=== PATIENT | female | born 1980 | race Caucasian/White ===

== ENCOUNTER → 2016-05-07 | Outpatient (CLI) | payer OTHER ==
[~2016-05-07] MED LIST: ACET-1256 PO; OXYC-57 PO
== END | disposition home or self-care (01) ==
LOC: C.PAPS 16:27
PROVIDERS: ATTEND Obstetrics & Gynecology
DX: Z12.4 Encounter for screening for malignant neoplasm of cervix (principal)

== ENCOUNTER → 2016-05-11 | Outpatient (CLI) | payer OTHER | END | disposition home or self-care (01) | LOC: C.LAB 12:38 | PROVIDERS: ATTEND Obstetrics & Gynecology | DX: Z83.2 Family history of diseases of the blood and blood-forming organs and certain disorders involving the immune mechanism (principal) ==

== ENCOUNTER → 2017-03-14 | Outpatient (CLI) | payer OTHER ==
[~2017-03-14] MED LIST changes: -OXYC-57 PO
--- NOTE | 2017-03-17 07:59 | MAMMOGRAPHY REPORT ---
BILATERAL DIGITAL SCREENING MAMMOGRAM TOMOSYNTHESIS WITH CAD: 03/14/2017 CLINICAL HISTORY: Routine screening. Patient has no complaints. TECHNIQUE: Breast tomosynthesis in addition to standard 2D mammography was performed. Current study was also evaluated with a Computer Aided Detection (CAD) system. COMPARISON: Comparison is made to exams dated: 02/26/2016 mammogram, 02/03/2014 mammogram, 05/27/2011 mammogram, and 05/21/2011 mammogram - [facility]. BREAST COMPOSITION: There are scattered areas of fibroglandular density in both breasts. FINDINGS: No suspicious masses, calcifications, or areas of architectural distortion are noted in ei ther breast. There has been no significant interval change compared to prior exams. Asymmetries in t he left superior breast on the MLO view are stable compared to prior exams. Scattered bilateral taylor gn appearing calcifications are not significantly changed. IMPRESSION: ACR BI-RADS CATEGORY 2: BENIGN There is no mammographic evidence of malignancy. A 1 year screening mammogram is recommended. The pa tient will receive written notification of the results. Approximately 10% of breast cancers are not detected with mammography. A negative mammographic report should not delay biopsy if a clinically suggestive mass is present. Dorie Bee M.D. /:03/14/2017 17:29:51 I O Psychologist: Peyton ROSARIO)(Jean Claude)(BD), [facility] letter sent: Normal 1/2 BI-RADS Code: ACR BI-RADS Category 2: Benign
== END | disposition home or self-care (01) ==
LOC: C.MAMM 09:45
PROVIDERS: ATTEND Obstetrics & Gynecology
DX: Z12.31 Encounter for screening mammogram for malignant neoplasm of breast (principal)

== ENCOUNTER 2021-01-14 02:00 | Observation (INO) ==
[2021-01-14] MEDS ORDERED: ACETAMINOPHEN 500 MG TAB PO STA (02:34)
[2021-01-14] MEDS ORDERED: ONDANSETRON INJ 2 MG/ML 2 ML VIAL IV STA (02:47)
[2021-01-14 02:54] LABS: Appearance Urine Cloudy (Clear); Bacteria Urine Automated 1+ (Negative); Blood Urine 2+ (Negative); Color Urine Dark Yellow; Epithelial Cell Urine Auto >30 /lpf (0-5); Glucose Urine UA Negative (Negative); Ketones Urine Trace (Negative); Leukocyte Esterase Urine Negative (Negative); Nitrite Urine Negative (Negative); Protein Urine Trace (Negative); Specific Gravity Urine 1.042 (1.000-1.030); Urobilinogen Urine Negative (Negative)
[2021-01-14 02:59] LABS: Bilirubin Urine 1+ (Negative); Pregnancy Test, Urine Negative (Negative)
[2021-01-14] MEDS ORDERED: SODIUM CHLORIDE 0.9% 1000ML 1,000 ML IV SCH (03:00)
[2021-01-14 03:28] LABS: Basophils # (auto) 0.01 K/uL (0-0.2); Basophils % (auto) 0.1 %; Eosinophils # (auto) 0.45 K/uL (0-0.5); Eosinophils % (auto) 3.5 %; Hematocrit (blood only) 43.7 % (37-47); Immature Granulocytes # (auto) 0.04 K/uL (0.00-0.02); Immature Granulocytes % (auto) 0.3 %; Lymphocytes # (auto) 0.49 K/uL (1.2-3.4); Lymphocytes % (auto) 3.8 %; Mean Corpuscular Hemoglobin 32.6 pg (25-34); Mean Corpuscular Hgb Conc 34.3 g/dL (32-36); Mean Platelet Volume 11.8 fL (7.4-10.4); Monocytes # (auto) 0.56 K/uL (0.11-0.59); Monocytes % (auto) 4.3 %; Platelet Count 167 K/uL (130-400); RDW Coefficient of Variation 12.9 % (11.5-14.5); RDW Standard Deviation 44.8 fL (36.4-46.3); White Blood Count 12.95 K/uL (4.8-10.8)
--- NOTE | 2021-01-14 03:35 | Emergency Department Note ---
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 Patient denies chest pain, dyspnea, vomiting, diarrhea. She is vaccinated for COVID-19. No known sick contacts. Home Medications Medication Instructions Recorded Confirmed Type sulfamethoxazole 800 1 tab PO BID 01/14/21 01/14/21 History mg-trimethoprim 160 mg tablet Allergies Allergy/AdvReac Type Severity Reaction Status Date / Time No Known Allergies Allergy Verified 01/14/21 02:57 Past Med/Surg History Medical History No significant medical problems Surgical History History of abdominoplasty History of History of cholecystectomy Tubal ligation status Social History Smoking Status: Current every day smoker Tobacco Type: Cigarettes marital status: Current Living Situation: Family current occupational status: employed 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 Feels Safe at Home: Yes Review of Systems A total of 10 systems reviewed and were otherwise negative Physical Exam Vital Signs Vital Signs - 24 hr 01/14/21 02:20 01/14/21 03:24 01/14/21 03:25 Temperature 37.7 C H Temperature Source Temporal Artery Scan Pulse Rate 122 H Pulse Rate [Finger] Respiratory Rate 18 Respiratory Effort / Characteristics Non-Labored Spontaneous Non-Labored Respiratory Depth Normal Blood Pressure 110/72 Blood Pressure [Right Arm] Blood Pressure Mean 84 Blood Pressure Mean [Right Arm] Pulse Oximetry 97 98 Oxygen Delivery Method Room Air Room Air Sepsis Recent Fever Within 48 Hours Yes Sepsis New/Unexplained Change in Mental Status Yes Sepsis Action Taken by Nursing No Action Required 01/14/21 04:48 Temperature 37.4 C Temperature Source Oral Pulse Rate Pulse Rate [Finger] 100 H Respiratory Rate 18 Respiratory Effort / Characteristics Non-Labored Spontaneous Respiratory Depth Normal Blood Pressure Blood Pressure [Right Arm] 107/53 L Blood Pressure Mean Blood Pressure Mean [Right Arm] 71 Pulse Oximetry 96 Oxygen Delivery Method Room Air Sepsis Recent Fever Within 48 Hours Sepsis New/Unexplained Change in Mental Status Sepsis Action Taken by Nursing VITALS: Vitals are noted on the nurse's note and reviewed by myself. Vital signs low-grade fever. GENERAL: Pleasant female mildly ill-appearing, in no acute distress, nondiaphoretic, well-developed well-nourished. SKIN: Bite to thigh with no palpable abscess. No lymphangitis. The rest of the skin was without rashes, erythema, edema, or bruising. There is no tenting of the skin. Capillary reflex less than 2 seconds. HEAD: Normocephalic atraumatic. EARS: External auditory canals clear, tympanic membranes pearly buchanan without erythema or effusion bilaterally. EYES: Pupils equal round and reactive to light and accommodation. Conjunctivae without injection, sclerae without icterus. Extraocular movements intact. NOSE: Patent, turbinates without inflammation or discharge. No sinus tenderness. MOUTH: Mucous membranes mildly dry. Pharynx without erythema or exudate. Uvula midline. Airway patent. Tongue does not deviate. NECK: Supple without nuchal rigidity. No lymphadenopathy. No thyromegaly. Cervical spine is nontender. No JVD. HEART: Regular rate and rhythm LUNGS: Clear to auscultation bilaterally without wheezes, rales or rhonchi. No retractions or accessory muscle use. ABDOMEN: Positive bowel sounds x 4. Normal tympanic percussion. Soft, n ontender, without masses or organomegaly. Gonzalez sign negative. No guarding or rebound tenderness. left CVA tenderness MUSCULOSKELETAL: No muscle atrophy, erythema, or edema noted. NEURO: Patient was alert and oriented to person place and time. Normal sensation to light and sharp touch. No focal neurological deficits. Course Administered Medications Discontinued Medications Acetaminophen (Acetaminophen 500 Mg Tab) 1,000 mg PO NOW STA Stop: 01/14/21 02:35 Last Admin: 01/14/21 03:24 Dose: 1,000 mg Documented by: [id number] Sodium Chloride (Nss 1000ml) 1,000 mls @ 999 mls/hr IV .Q1H1M MANDO Stop: 01/14/21 04:00 Last Infusion: 01/14/21 04:36 Dose: 0 mls/hr Documented by: [id number] Admin: 01/14/21 03:24 Dose: 999 mls/hr Documented by: [id number] Sodium Chloride (Nss 1000ml) 1,000 mls @ 999 mls/hr IV .Q1H1M ONE Stop: 01/14/21 05:34 Last Admin: 01/14/21 04:47 Dose: 999 mls/hr Documented by: [id number] Ceftriaxone Sodium (Rocephin) 2,000 mg in 70 mls @ 140 mls/hr IV NOW STA Stop: 01/14/21 05:03 Last Infusion: 01/14/21 05:19 Dose: 0 mls/hr Documented by: [id number] Admin: 01/14/21 04:47 Dose: 140 mls/hr Documented by: [id number] Ioversol (Optiray 320 100ml) 95 ml IV ONCE ONE Stop: 01/14/21 05:56 Last Admin: 01/14/21 05:55 Dose: 95 ml Documented by: [id number] Ketorolac Tromethamine (Ketorolac Tromethamine 15 Mg/Ml Vial) 10 mg IV NOW STA Stop: 01/14/21 04:35 Last Admin: 01/14/21 04:47 Dose: 10 mg Documented by: [id number] Ondansetron HCl (Ondansetron Inj 2 Mg/Ml 2 Ml Vial) 4 mg IV NOW STA Stop: 01/14/21 02:48 Last Admin: 01/14/21 03:24 Dose: 4 mg Documented by: [id number] Medical Decision Making Medical Records Attestation: I reviewed the patient's medical records. Home Medications Current Medication List: was personally reviewed by me Laboratory Data Attestation: I reviewed the patient's lab results. Result diagrams: 01/14/21 03:11 01/14/21 03:11 Lab Results 01/14/21 01/14/21 01/14/21 Range/Units 02:35 02:35 02:35 WBC (4.8-10.8) K/uL RBC (4.2-5.4) M/uL Hgb (12.0-16.0) g/dL Hct (37-47) % MCV (80-100) fL MCH (25-34) pg MCHC (32-36) g/dL RDW Std Deviation (36.4-46.3) fL RDW Coeff of David (11.5-14.5) % Plt Count (130-400) K/uL MPV (7.4-10.4) fL Immature Gran % (Auto) % Neut % (Auto) % Lymph % (Auto) % [place] % (Auto) % Eos % (Auto) % Baso % (Auto) % Neut # (Auto) (1.4-6.5) K/uL Lymph # (Auto) (1.2-3.4) K/uL [place] # (Auto) (0.11-0.59) K/uL Eos # (Auto) (0-0.5) K/uL Baso # (Auto) (0-0.2) K/uL Immature Gran # (Auto) (0.00-0.02) K/uL PT (9.0-12.0) Seconds INR (0.9-1.1) APTT (21.0-31.0) Seconds PTT Ratio Sodium (136-145) mmol/L Potassium (3.5-5.1) mmol/L Chloride (98-107) mmol/L Carbon Dioxide (21-32) mmol/L Anion Gap (3-11) BUN (7-18) mg/dl Creatinine (0.6-1.2) mg/dl Est Cr Clr Drug Dosing ml/min Est GFR ( Amer) ml/min Est GFR (Non-Af Amer) ml/min BUN/Creatinine Ratio (10-20) Glucose (70-99) mg/dl Lactate (0.4-2.0) mmol/L Calcium (8.5-10.1) mg/dl Magnesium (1.8-2.4) mg/dl Total Bilirubin (0.2-1) mg/dl AST (15-37) U/L ALT (12-78) U/L Alkaline Phosphatase (45-117) U/L Troponin I (0-0.045) ng/ml Total Protein (6.4-8.2) gm/dl Albumin (3.4-5.0) gm/dl Globulin (2.5-4.0) gm/dl Albumin/Globulin Ratio (0.9-2) Urine Color Dark Yellow Urine Appearance Cloudy A (Clear) Urine pH 6.0 (4.5-7.5) Ur Specific [place] 1.042 H (1.000-1.030) Urine Protein Trace H (Negative) Urine Glucose (UA) Negative (Negative) Urine Ketones Trace H (Negative) Urine Blood 2+ H (Negative) Urine Nitrite Negative (Negative) Urine Bilirubin 1+ H (Negative) Urine Urobilinogen Negative (Negative) Ur Leukocyte Esterase Negative (Negative) Urine WBC (Auto) 10-30 H (0-5) /hpf Urine RBC (Auto) 10-30 H (0-4) /hpf U Hyaline Cast (Auto) 5-10 H (0-5) /lpf U Epithel Cells (Auto) >30 H (0-5) /lpf Urine Bacteria (Auto) 1+ H (Negative) Urine Yeast Not Reportable Urine Test Negative (Negative) Lyme Disease IgG Ab (Negative) Lyme Disease IgM Ab (Negative) COVID-19 Eval Order Covid19 at [facility] SARS-CoV-2 (PCR) (Negative) 01/14/21 01/14/21 01/14/21 Range/Units 02:35 03:11 03:11 WBC 12.95 H (4.8-10.8) K/uL RBC 4.60 (4.2-5.4) M/uL Hgb 15.0 (12.0-16.0) g/dL Hct 43.7 (37-47) % MCV 95.0 (80-100) fL MCH 32.6 (25-34) pg MCHC 34.3 (32-36) g/dL RDW Std Deviation 44.8 (36.4-46.3) fL RDW Coeff of David 12.9 (11.5-14.5) % Plt Count 167 (130-400) K/uL MPV 11.8 H (7.4-10.4) fL Immature Gran % (Auto) 0.3 % Neut % (Auto) 88.0 % Lymph % (Auto) 3.8 % [place] % (Auto) 4.3 % Eos % (Auto) 3.5 % Baso % (Auto) 0.1 % Neut # (Auto) 11.40 H (1.4-6.5) K/uL Lymph # (Auto) 0.49 L (1.2-3.4) K/uL [place] # (Auto) 0.56 (0.11-0.59) K/uL Eos # (Auto) 0.45 (0-0.5) K/uL Baso # (Auto) 0.01 (0-0.2) K/uL Immature Gran # (Auto) 0.04 H (0.00-0.02) K/uL PT 10.9 (9.0-12.0) Seconds INR 1.1 (0.9-1.1) APTT 30.7 (21.0-31.0) Seconds PTT Ratio 1.2 Sodium (136-145) mmol/L Potassium (3.5-5.1) mmol/L Chloride (98-107) mmol/L Carbon Dioxide (21-32) mmol/L Anion Gap (3-11) BUN (7-18) mg/dl Creatinine (0.6-1.2) mg/dl Est Cr Clr Drug Dosing ml/min Est GFR ( Amer) ml/min Est GFR (Non-Af Amer) ml/min BUN/Creatinine Ratio (10-20) Glucose (70-99) mg/dl Lactate (0.4-2.0) mmol/L Calcium (8.5-10.1) mg/dl Magnesium (1.8-2.4) mg/dl Total Bilirubin (0.2-1) mg/dl AST (15-37) U/L ALT (12-78) U/L Alkaline Phosphatase (45-117) U/L Troponin I (0-0.045) ng/ml Total Protein (6.4-8.2) gm/dl Albumin (3.4-5.0) gm/dl Globulin (2.5-4.0) gm/dl Albumin/Globulin Ratio (0.9-2) Urine Color Urine Appearance (Clear) Urine pH (4.5-7.5) Ur Specific [place] (1.000-1.030) Urine Protein (Negative) Urine Glucose (UA) (Negative) Urine Ketones (Negative) Urine Blood (Negative) Urine Nitrite (Negative) Urine Bilirubin (Negative) Urine Urobilinogen (Negative) Ur Leukocyte Esterase (Negative) Urine WBC (Auto) (0-5) /hpf Urine RBC (Auto) (0-4) /hpf U Hyaline Cast (Auto) (0-5) /lpf U Epithel Cells (Auto) (0-5) /lpf Urine Bacteria (Auto) (Negative) Urine Yeast Urine Test (Negative) Lyme Disease IgG Ab (Negative) Lyme Disease IgM Ab (Negative) COVID-19 Eval Order SARS-CoV-2 (PCR) NEGATIVE (Negative) 01/14/21 01/14/21 01/14/21 Range/Units 03:11 03:11 03:11 WBC (4.8-10.8) K/uL RBC (4.2-5.4) M/uL Hgb (12.0-16.0) g/dL Hct (37-47) % MCV (80-100) fL MCH (25-34) pg MCHC (32-36) g/dL RDW Std Deviation (36.4-46.3) fL RDW Coeff of David (11.5-14.5) % Plt Count (130-400) K/uL MPV (7.4-10.4) fL Immature Gran % (Auto) % Neut % (Auto) % Lymph % (Auto) % [place] % (Auto) % Eos % (Auto) % Baso % (Auto) % Neut # (Auto) (1.4-6.5) K/uL Lymph # (Auto) (1.2-3.4) K/uL [place] # (Auto) (0.11-0.59) K/uL Eos # (Auto) (0-0.5) K/uL Baso # (Auto) (0-0.2) K/uL Immature Gran # (Auto) (0.00-0.02) K/uL PT (9.0-12.0) Seconds INR (0.9-1.1) APTT (21.0-31.0) Seconds PTT Ratio Sodium 135 L (136-145) mmol/L Potassium 3.8 (3.5-5.1) mmol/L Chloride 111 H (98-107) mmol/L Carbon Dioxide 20 L (21-32) mmol/L Anion Gap 4.0 (3-11) BUN 10 (7-18) mg/dl Creatinine 1.26 H (0.6-1.2) mg/dl Est Cr Clr Drug Dosing 59.8 ml/min Est GFR ( Amer) 61.3 ml/min Est GFR (Non-Af Amer) 52.9 ml/min BUN/Creatinine Ratio 7.8 L (10-20) Glucose 117 H (70-99) mg/dl Lactate 1.4 (0.4-2.0) mmol/L Calcium 8.5 (8.5-10.1) mg/dl Magnesium 2.1 (1.8-2.4) mg/dl Total Bilirubin 0.6 (0.2-1) mg/dl AST 23 (15-37) U/L ALT 32 (12-78) U/L Alkaline Phosphatase 89 (45-117) U/L Troponin I < 0.015 (0-0.045) ng/ml Total Protein 7.1 (6.4-8.2) gm/dl Albumin 3.3 L (3.4-5.0) gm/dl Globulin 3.8 (2.5-4.0) gm/dl Albumin/Globulin Ratio 0.9 (0.9-2) Urine Color Urine Appearance (Clear) Urine pH (4.5-7.5) Ur Specific [place] (1.000-1.030) Urine Protein (Negative) Urine Glucose (UA) (Negative) Urine Ketones (Negative) Urine Blood (Negative) Urine Nitrite (Negative) Urine Bilirubin (Negative) Urine Urobilinogen (Negative) Ur Leukocyte Esterase (Negative) Urine WBC (Auto) (0-5) /hpf Urine RBC (Auto) (0-4) /hpf U Hyaline Cast (Auto) (0-5) /lpf U Epithel Cells (Auto) (0-5) /lpf Urine Bacteria (Auto) (Negative) Urine Yeast Urine Test (Negative) Lyme Disease IgG Ab Negative (Negative) Lyme Disease IgM Ab Negative (Negative) COVID-19 Eval Order SARS-CoV-2 (PCR) (Negative) Imaging Data Attestation: I personally reviewed and interpreted this imaging study as follows: MDM Narrative Prior records/ancillary studies reviewed. Triage Nursing notes reviewed. Additional history obtained from nursing. The patient's history was concerning for fever. Differential diagnosis: Etiologies such as viral syndrome, otitis, pharyngitis, pneumonia, influenza, meningitis, urinary tract infection, sepsis, bacteremia, as well as others were entertained. Physical examination: As above ER treatment provided: An order was placed for continuous cardiac monitoring. The monitor shows a rate of 60-1 50 with a sinus rhythm. IV fluids, Tylenol, Rocephin, Toradol On reassessment the patient felt better. Diagnostics interpreted by me: ECG: Ordered for tachycardia EKG: Normal sinus, incomplete right bundle branch block, no acute ST-T wave changes. Impression incomplete right bundle branch block interpreted by myself I think arrhythmia is unlikely. EKG shows no interval abnormalities such as QT prolongation or WPW. There are no findings to suggest Brugada syndrome. Cardiac monitoring in the emergency department reveals no tachycardic or bradycardic dysrhythmia. Hypertrophic cardiomyopathy was considered but there are no clear historical elements pointing toward this. EKG is not suggestive. The QRS voltage is not extremely large and there are no suggestive Q waves. The labs revealed leukocytosis, urine concerning for infection sent for culture. No prior urine culture for review Negative Covid Blood cultures pending Imaging studies: Chest x-ray with no acute consolidation, pneumothorax or free air per my tribulation Preliminary Findings Only See Final Report For Complete Findings CT ABDOMEN & PELVIS With Contrast: Impression: Cholecystectomy. No urinary bladder wall thickening. No hydronephrosis or nephrolithiasis No evidence of appendicitis. Radiologist: Steven Lau MD Consultation: A consultation was placed with hospitalist. The case was discussed and diagnostics were reviewed. The patient was evaluated in the ER for further treatment. This appears to be consistent with pyelonephritis. Medicine was consulted. She will be evaluated for admission. She has CVA tenderness. Urine was concerning for infection. She had fever and a white count. By the evaluation outlined above emergent etiologies such as otitis, pharyngitis, pneumonia, meningitis, sepsis, bacteremia, as well as others were deemed relatively unlikely. The pt informed about the findings as listed above. All questions were answered and pleased with the treatment. The chart was completed utilizing [employer] Speech voice recognition software. Grammatical errors, random word insertions, pronoun errors, and incomplete sentences are an occassional consequence of this system due to software limitations, ambient noise, and hardware issues. Any formal questions or concerns about the content, text, or information contained within the body of this dictation should be directly addressed to the physician bilingual office assistant for clarification. Impression & Plan Pyelonephritis, Fever Discharge Plan Visit Data Chief Complaint: Nausea Stated Complaint: CHILLS, FEVER, NAUSEA ED Provider: Ada Parada ED Midlevel Provider: Olamide Sawyer Discharge Problem: Pyelonephritis, Fever Patient Disposition: Admitted As Inpatient Condition: Good Forms Stand Alone Forms: My [facility] [place] [employer] Prescriptions Prescriptions: No Action sulfamethoxazole-trimethoprim 800-160 mg tablet 1 tab PO BID RF: 0 Referrals Referrals: Meredith Garduno PA-C [Primary Care Provider] -
[2021-01-14 03:38] LABS: INR 1.1 (0.9-1.1); Partial Thromboplastin Ratio 1.2; Partial Thromboplastin Time 30.7 Seconds (21.0-31.0); Prothrombin Time 10.9 Seconds (9.0-12.0)
[2021-01-14 03:48] LABS: Alanine Aminotransferase 32 U/L (12-78); Albumin Level 3.3 gm/dl (3.4-5.0); Aspartate Aminotransferase 23 U/L (15-37); BUN Creatinine Ratio 7.8 (10-20); Blood Urea Nitrogen 10 mg/dl (7-18); Calcium 8.5 mg/dl (8.5-10.1); Carbon Dioxide 20 mmol/L (21-32); Chloride 111 mmol/L (98-107); Creatinine Clr Calc Pharmacy 59.8 ml/min; Est GFR (African American) 61.3 ml/min; Est GFR (Non-African American) 52.9 ml/min; Glucose 117 mg/dl (70-99); Magnesium 2.1 mg/dl (1.8-2.4); Potassium 3.8 mmol/L (3.5-5.1); Sodium 135 mmol/L (136-145)
[2021-01-14 03:53] LABS: Albumin Globulin Ratio 0.9 (0.9-2); Alkaline Phosphatase 89 U/L (45-117); Bilirubin,Total 0.6 mg/dl (0.2-1); Globulin 3.8 gm/dl (2.5-4.0); Total Protein 7.1 gm/dl (6.4-8.2); Troponin I < 0.015 ng/ml (0-0.045)
[2021-01-14 04:09] LABS: Lyme Ab IgG w/WB Rflx Negative (Negative); Lyme Ab IgM w/WB Rflx Negative (Negative)
[2021-01-14] MEDS ORDERED: cefTRIAXone SODIUM 2,000 MG/70 ML BAG IV STA (04:34)
[2021-01-14] MEDS ORDERED: KETOROLAC TROMETHAMINE 15 MG/ML VIAL IV STA (04:34)
[2021-01-14] MEDS ORDERED: SODIUM CHLORIDE 0.9% 1000ML 1,000 ML IV ONE (04:34)
[2021-01-14] MEDS ORDERED: OPTIRAY 320 100ml IV ONE (05:55)
--- NOTE | 2021-01-14 07:27 | History and Physical Report ---
DATE OF ADMISSION: 01/14/2021 CHIEF COMPLAINT: Nausea, fever. HISTORY OF PRESENT ILLNESS: This is a 40-year-old female with past medical history significant for dysfunctional uterine bleeding, obesity, presents with nausea. The patient says on , she had a bug bite on the left thigh region. She felt a stinging feeling, but she did not see the bug. Then she developed erythematous rash in that area and she was prescribed Bactrim, which was taken and since then she developed nausea, vomiting, shaking chills. That is the reason she came to the ER today and found to have UTI and possible pyelonephritis. Currently, resting comfortably, hemodynamically stable. Denies any headache, no dizziness, no blurred visions, no earache, no runny nose, no sore throat, no cough, no dysphagia, appetite is down the last couple of days. No chest pain, no shortness of breath. She has nausea and vomited a few times. No abdominal pain, no diarrhea or constipation. No blood in the urine or blood in the stools. No rash, no swelling in the legs. ALLERGIES: No known drug allergies. PAST MEDICAL HISTORY: As mentioned above. PAST SURGICAL HISTORY: Breast biopsy. MEDICATIONS: Bactrim. FAMILY HISTORY: Significant for sister has atypical hyperplasia. SOCIAL HISTORY: , smokes tobacco. Occasional alcohol, no drug use. REVIEW OF SYSTEMS: As per HPI. Rest of review of systems is negative. PHYSICAL EXAMINATION: GENERAL: The patient is of moderate build, not in acute distress. VITAL SIGNS: Temperature T-max 37.7, pulse 100, respiratory rate 18, blood pressure 107/53, oxygen 96% on room air. HEENT: Pupils equal, round and reactive to light. Oral mucosa moist. NECK: No JVD, no neck masses. CARDIOVASCULAR: S1 and S2 heard. Regular rate and rhythm. No murmur, no gallop. RESPIRATORY SYSTEM: Normal AP diameter. No accessory muscle use. No wheezing, no crackles. ABDOMEN: Soft, bowel sounds are present, nontender, no distention. CENTRAL NERVOUS SYSTEM: Cranial nerves II through XII are grossly intact, nonfocal. EXTREMITIES: Erythematous rash seen in her left thigh in the medial aspect. LABORATORY DATA: WBC 12.9, hemoglobin 15, hematocrit 43.7, platelets 167. PT 10.9, INR 1.1, APTT 13.7. Sodium 135, potassium 3.8, chloride 111, bicarbonate 20, BUN 10, creatinine 1.2, serum glucose 117. Lactate 1.4, calcium 8.5, magnesium 2.1, total bilirubin 0.6, AST 23, ALT 32, alkaline phosphatase 89. Troponin I less than 0.015. Urinalysis cloudy, +2 blood, +1 bacteria. Lyme screen negative. SARS-CoV-2 PCR negative. IMAGING DATA: Chest x-ray, no acute findings. CT abd/pelvis preliminary report unremarkable EKG: Sinus tachycardia, incomplete right bundle-branch block at a rate of 107. ASSESSMENT AND PLAN: This is a 40-year-old female who presents with bug bite and also urinary tract infection, possible pyelonephritis. 1. Urinary tract infection, possible pyelonephritis and shaking chills, temperature spike and leukocytosis. We will place her on IV Rocephin. Follow the cultures. Gentle fluids. 2. Acute kidney injury . Presented with creatinine 1.25. Avoid nephrotoxic agents. Repeat labs. 3. Bug bite and cellulitis of the left thigh region in the medial aspect. Lyme screen is negative. The patient felt a stinging bug bite, but could not see the bug. We will also add doxycycline along with Rocephin and follow the response. 4. Deep venous thrombosis prophylaxis: Lovenox. DISPOSITION: Closely monitor in the medical floor. PT, OT prior to discharge. Social service to help with discharge planning. Job ID: [id number] MTDD
--- NOTE | 2021-01-14 08:01 | CT Scan Report ---
ABDOMEN AND PELVIS CT WITH IV CONTRAST CT DOSE: 430.46 mGy.cm HISTORY: Right flank pain, uti TECHNIQUE: Multiaxial CT images of the abdomen and pelvis were performed following the use of intrave nous contrast. A dose lowering technique was utilized adhering to the principles of ALARA. COMPARISON STUDY: Abdomen and pelvis CT 10/05/2018. FINDINGS: The lung bases are clear. Cholecystectomy. No bowel wall thickening or obstruction. Normal appendix. The bladder, uterus, bilateral adnexa are within normal limits. No retroperitoneal lymphade nopathy. Cholecystectomy. The liver, spleen, adrenal glands, pancreas, and kidneys are unremarkable. No hydronephrosis. Moderate well-formed stool seen within the colon. IMPRESSION: 1. No bowel wall thickening or obstruction. 2. Normal appendix. 3. No hydronephrosis. ACT 112: Negative or not required by law. Electronically signed by: Jose Eduardo Gallo M.D. 01/14/2021 7:59 AM
--- NOTE | 2021-01-14 08:37 | XRay Report ---
XR chest 1V portable CLINICAL HISTORY: SEPSIS COMPARISON STUDY: Chest radiograph January 31, 2016. FINDINGS: Lung volumes are normal. Lungs are clear. There is no pneumothorax or pleural effusion. Car diac size is normal. Mediastinal contours are normal. There is no evidence for pulmonary edema. IMPRESSION: No acute cardiopulmonary findings. ACT 112: Negative or not required by law. Electronically signed by: Mack Villalobos M.D. 01/14/2021 8:36 AM
[2021-01-14] MEDS ORDERED: SODIUM CHLORIDE 0.9% 500 ML IV ONE (08:48)
[2021-01-14] MEDS: ACETAMINOPHEN 325 MG TAB PO PRN ×2 (09:07→15:32)
[2021-01-14] MEDS: ONDANSETRON INJ 2 MG/ML 2 ML VIAL IV PRN (09:08)
[2021-01-14] MEDS: SODIUM CHLORIDE 0.9% 1000ML 1,000 ML IV SCH ×2 (09:29→17:29)
[2021-01-14] MEDS: DOXYCYCLINE HYCLATE 100 MG in DEXTROSE 5% 100 ML IV SCH ×2 (09:46→21:38)
[2021-01-14] MEDS: ENOXAPARIN INJ 40 MG/0.4 ML SYR SQ SCH (09:51)
--- NOTE | 2021-01-14 11:04 | Ultrasound Report ---
LEFT LOWER EXTREMITY VENOUS DOPPLER CLINICAL HISTORY: left leg pain, r/o dvt COMPARISON STUDY: No previous studies for comparison. TECHNIQUE: Sonography of the deep venous system of the left lower extremity was performed. Compressi on and augmentation were evaluated. FINDINGS: The left common femoral, superficial femoral and popliteal veins were compressible. Augmen tation was normal. Flow was shown within the deep calf vessels. IMPRESSION: No evidence of deep venous thrombus within the left lower extremity. ACT 112: Negative or not required by law. Electronically signed by: Mack Villalobos M.D. 01/14/2021 11:02 AM
[2021-01-14] MEDS ORDERED: traMADol HCL 50 MG TABLET PO PRN (12:46)
--- NOTE | 2021-01-14 16:14 | Hospitalist Progress Note ---
Date of Service January 14, 2021 Assessment & Plan (1) Fever: Plan: POSSIBLE SEPSIS FROM: lactate normal given IV fluids bolus, continue NSS at 125cc/hr CELLULITIS, LEFT THIGH blood cultures pending nasal MRSA: negative continue Ceftri + Doxy R/O LYME DISEASE, ANAPLASMOSIS Lyme screen negative western blot pending Anaplasmosis pending POSSIBLE URINARY TRACT INFECTION urine culture pending R/O COVID 1st covidi test negative check 2nd covid screen tomorrow given Upper Resp Symptoms, Myalgias ACUTE RENAL FAILURE likely from Prerenal from Vomiting, poor intake Bactrim continue IV fluids monitor BM Deep venous thrombosis prophylaxis: Lovenox. Disposition pending plan of care discussed with patient in detail and at length all questions answered she is understanding, agreeable, comfortable with the plan of care Admission and Anticipated Discharge Date Admission Date: January 14, 2021 Subjective ff up for cellulitis, etc seen resting in bed, not in distress reports feeling "crappy" has diffuse muscle aches, mild frontal headache mild left thigh pain on the suspected insect bite area reports nasal congestion and discharge, no cough/dyspnea/sore throat appetite is poor no chest pain, palpitations, dizziness no other symptoms Review of Systems Review of Systems: all noted and negative except for above Physical Exam Physical Exam: General- oriented x 3, not in distress, speaks in sentences with no effort or accessory muscle use Head- atraumatic Eyes- PERRL, EOMI, anicteric ENT- oropharynx clear no LAD Neck- supple, no JVD, no adenopathy, no thyromegaly; carotids +2/2, no bruits appreciated Lungs- clear to auscultation bilaterally, no rales/wheezes Heart- normal rate, regular rhythm; no murmur, no gallop, no rub appreciated Abdomen- normal bowel sounds, nondistended, soft, nontender, no masses or hepatosplenomegaly Extremities- no pretibial edema, no calf tenderness; peripheral pulses intact left medial thigh: area of erythema, mildly elevated, demarcated with mild warmth and tenderness no edema of the thigh Neuro- alert, oriented x 3; CN 2-12 grossly intact; motor 5/5 bilaterally;sensation 100% on all extremities; no other gross focal neurologic deficits Skin- warm & dry Results & Data Results & Data ([facility]) Vital Signs (Past 12 Hours) Vital Signs Temp Pulse Resp BP BP Pulse Ox 10/17/21 16:01 37.2 C 90 16 96/62 L 97 01/14/21 08:45 36.8 C 77 16 103/66 99 01/14/21 07:00 18 86/57 L 96 01/14/21 04:48 37.4 C 100 H 18 107/53 L 96 all noted and reviewed including below
[2021-01-15] MEDS: ACETAMINOPHEN 325 MG TAB PO PRN (02:24)
[2021-01-15] MEDS: cefTRIAXone SODIUM 2,000 MG in DEXTROSE 5% 50 ML IV SCH (06:12)
[2021-01-15 07:01] LABS: Basophils # (auto) 0.01 K/uL (0-0.2); Basophils % (auto) 0.2 %; Eosinophils # (auto) 0.61 K/uL (0-0.5); Eosinophils % (auto) 14.1 %; Hematocrit (blood only) 37.6 % (37-47); Hemoglobin 12.4 g/dL (12.0-16.0); Immature Granulocytes # (auto) 0.01 K/uL (0.00-0.02); Immature Granulocytes % (auto) 0.2 %; Lymphocytes # (auto) 0.88 K/uL (1.2-3.4); Lymphocytes % (auto) 20.3 %; Mean Corpuscular Hemoglobin 32.2 pg (25-34); Mean Corpuscular Volume 97.7 fL (80-100); Mean Platelet Volume 12.3 fL (7.4-10.4); Monocytes # (auto) 0.63 K/uL (0.11-0.59); Monocytes % (auto) 14.5 %; Neutrophils % (auto) 50.7 %; Platelet Count 142 K/uL (130-400); RDW Coefficient of Variation 13.5 % (11.5-14.5); Red Blood Count 3.85 M/uL (4.2-5.4); White Blood Count 4.34 K/uL (4.8-10.8)
[2021-01-15 07:15] LABS: Albumin Globulin Ratio 0.8 (0.9-2); Albumin Level 2.3 gm/dl (3.4-5.0); BUN Creatinine Ratio 7.4 (10-20); Bilirubin,Total 0.2 mg/dl (0.2-1); Calcium 7.8 mg/dl (8.5-10.1); Creatinine Clr Calc Pharmacy 85.7 ml/min; Est GFR (African American) 94.6 ml/min; Est GFR (Non-African American) 81.6 ml/min; Globulin 3.1 gm/dl (2.5-4.0); Potassium 4.1 mmol/L (3.5-5.1)
[2021-01-15 07:19] LABS: Total Protein 5.4 gm/dl (6.4-8.2)
[2021-01-15] MEDS ORDERED: SODIUM CHLORIDE 0.9% 1000ML 500 ML IV ONE ×2 (08:37→13:25)
[2021-01-15] MEDS: ENOXAPARIN INJ 40 MG/0.4 ML SYR SQ SCH (08:55)
[2021-01-15] MEDS: SODIUM CHLORIDE 0.9% 1000ML 1,000 ML IV SCH ×2 (10:23→23:50)
[2021-01-15] MEDS: DOXYCYCLINE HYCLATE 100 MG in DEXTROSE 5% 100 ML IV SCH ×2 (10:23→21:02)
--- NOTE | 2021-01-15 16:20 | Hospitalist Progress Note ---
Date of Service January 15, 2021 Assessment & Plan (1) Fever: Plan: POSSIBLE SEPSIS FROM: lactate normal given IV fluids bolus, continue NSS at 125cc/hr fever curve improving WBC down from 12 to 4 clinically feels better CELLULITIS, LEFT THIGH blood cultures pending nasal MRSA: negative continue Ceftri + Doxy Day 2 R/O LYME DISEASE, ANAPLASMOSIS Lyme screen negative western blot pending Anaplasmosis pending on Doxy POSSIBLE URINARY TRACT INFECTION urine culture pending on Ceftri Pyelo unlikely given absence of CVA tenderness, no signs of pyelo on CT COVID infection unlikely Covid test negative improving with antibiotics ACUTE RENAL FAILURE likely from Prerenal from Vomiting, poor intake Bactrim crea back to baseline BP still marginal continue IV fluids Deep venous thrombosis prophylaxis: Lovenox. Disposition pending plan of care discussed with patient in detail and at length all questions answered she is understanding, agreeable, comfortable with the plan of care Admission and Anticipated Discharge Date Admission Date: January 14, 2021 Subjective ff up for sepsis, cellulits, etc seen resting in bed, comfortable in better spirits states she feels better today myalgia and headache much better no nasal congestion/drainage, no sore throat no loss of taste or smell appetite much better minimal discomfort on the left medial thigh no fever/chills no other symptoms Review of Systems Review of Systems: all noted and negative except for above Physical Exam Physical Exam: General- oriented x 2, not in distress, speaks in sentences with no effort or accessory muscle use Eyes- anicteric Neck- no JVD Lungs- clear BS BL no rales/wheezing Heart- normal rate, regular rhythm; no murmurs Abdomen- normal bowel sounds, nondistended, soft, nontender Extremities- no pretibial edema, no calf tenderness left medial thigh: insect bite area erythema resolving, not raised, receding from demarcation line no mass/abscess on palpation Neuro- alert, oriented x 3; no gross focal neurologic deficits Skin- warm & dry Results & Data Results & Data ([facility]) Vital Signs (Past 12 Hours) Vital Signs Temp Pulse Resp BP BP Pulse Ox 01/15/21 16:09 66 100/70 99 01/15/21 15:23 36.8 C 66 16 99/58 L 99 01/15/21 08:25 36.8 C 71 18 87/57 L 99 all noted and reviewed including below
--- NOTE | 2021-01-15 16:42 | Electrocardiogram Report ---
Test Reason : Blood Pressure : / mmHG Vent. Rate : 107 BPM Atrial Rate : 107 BPM P-R Int : 124 ms QRS Dur : 096 ms QT Int : 312 ms P-R-T Axes : 047 046 059 degrees QTc Int : 416 ms Sinus tachycardia Incomplete right bundle branch block Borderline ECG When compared with ECG of 19-NOV-2011 20:38, Vent. rate has increased BY 35 BPM Confirmed by Etienne Crowley ([id number]) on 01/15/2021 4:42:35 PM Referred By: REFERRED SELF Confirmed By:Etienne Crowley
[2021-01-15] MEDS: ONDANSETRON INJ 2 MG/ML 2 ML VIAL IV PRN (19:47)
[2021-01-16] MEDS ORDERED: SODIUM CHLORIDE 0.45 % 1,000 ML IV ONE (00:03)
[2021-01-16 00:28] LABS: Basophils # (auto) 0.01 K/uL (0-0.2); Basophils % (auto) 0.2 %; Eosinophils # (auto) 0.57 K/uL (0-0.5); Eosinophils % (auto) 12.8 %; Hematocrit (blood only) 37.5 % (37-47); Hemoglobin 12.3 g/dL (12.0-16.0); Immature Granulocytes # (auto) 0.01 K/uL (0.00-0.02); Immature Granulocytes % (auto) 0.2 %; Lymphocytes # (auto) 1.51 K/uL (1.2-3.4); Lymphocytes % (auto) 33.9 %; Mean Corpuscular Hgb Conc 32.8 g/dL (32-36); Mean Corpuscular Volume 97.7 fL (80-100); Mean Platelet Volume 11.4 fL (7.4-10.4); Neutrophils # (auto) 1.55 K/uL (1.4-6.5); Neutrophils % (auto) 34.9 %; Platelet Count 131 K/uL (130-400); RDW Coefficient of Variation 13.4 % (11.5-14.5); RDW Standard Deviation 47.6 fL (36.4-46.3); Red Blood Count 3.84 M/uL (4.2-5.4); White Blood Count 4.45 K/uL (4.8-10.8)
[2021-01-16 00:44] LABS: Albumin Level 2.5 gm/dl (3.4-5.0); BUN Creatinine Ratio 13.2 (10-20); Calcium 8.1 mg/dl (8.5-10.1); Creatinine Clr Calc Pharmacy 78.5 ml/min; Est GFR (African American) 85.1 ml/min; Est GFR (Non-African American) 73.5 ml/min; Potassium 4.3 mmol/L (3.5-5.1)
[2021-01-16 00:47] LABS: Albumin Globulin Ratio 0.7 (0.9-2); Bilirubin,Total 0.1 mg/dl (0.2-1); Globulin 3.3 gm/dl (2.5-4.0); Total Protein 5.8 gm/dl (6.4-8.2)
[2021-01-16] MEDS: cefTRIAXone SODIUM 2,000 MG in DEXTROSE 5% 50 ML IV SCH (05:02)
[2021-01-16] MEDS: ENOXAPARIN INJ 40 MG/0.4 ML SYR SQ SCH (09:56)
[2021-01-16] MEDS: DOXYCYCLINE HYCLATE 100 MG in DEXTROSE 5% 100 ML IV SCH (09:56)
--- NOTE | 2021-01-16 20:08 | Hospitalist Progress Note ---
Date of Service January 16, 2021 delayed entry date of service noted above Assessment & Plan (1) Fever: Plan: POSSIBLE SEPSIS FROM LEFT THIGH CELLULITIS- INSECT BITE? R/O LYME DISEASE, ANAPLASMOSIS lactate normal given IV fluids bolus, and NSS at 125cc/hr fever and leukocytosis resolved clinically feels better CELLULITIS, LEFT THIGH blood cultures negative x 48 hrs nasal MRSA: negative given Ceftri --> change to Cephalexin x 7 more day R/O LYME DISEASE, ANAPLASMOSIS Lyme screen pending Anaplasmosis pending Babesiosis pending given Doxy IV--> continue x 10 more days URINARY TRACT INFECTION ruled out urine culture negative Pyelo unlikely given absence of CVA tenderness, no signs of pyelo on CT COVID infection unlikely Covid test x 1 negative fever, symptoms improved with antibiotics ACUTE RENAL FAILURE likely from Prerenal from Vomiting, poor intake, Bactrim crea back to baseline BP still marginal-- given IV fluids advised to drink Gatorade, liberalize salt intake Deep venous thrombosis prophylaxis: Lovenox given Disposition dc home ff up with PCP in 1 week plan of care discussed with patient in detail and at length all questions answered she is understanding, agreeable, comfortable with the plan of care Admission and Anticipated Discharge Date Admission Date: January 14, 2021 Subjective ff up for sepsis, cellulitis, etc seen resting in bed, comfortable in good spirits states she feels much better overall headache improving has mild lightheadedness no nasal congestion/drainage, sore throat no cough, dyspnea no abdominal pain, back pain, problems with urination area of possible insect bite continues to improve- itchy but not painful Review of Systems Review of Systems: all noted and negative except for above Physical Exam Physical Exam: General- oriented x 3, not in distress, speaks in sentences with no effort or accessory muscle use Eyes- anicteric Neck- no JVD Lungs- clear breath sounds bilaterally, no rales/wheezes Heart- normal rate, regular rhythm; no murmurs Abdomen- normal bowel sounds, nondistended, soft, nontender Extremities- no pretibial edema, no calf tenderness left thigh- demarcated area- erythema receded, no palpable fluctuation, non tender, no warmth Neuro- alert, oriented x 3; no gross focal neurologic deficits Skin- warm & dry Results & Data Results & Data ([facility]) Vital Signs (Past 12 Hours) Vital Signs BP 01/16/21 10:03 104/68 all noted and reviewed including below
[2021-01-17 15:17] LABS: 18KDIGG Band NON-REACTIVE; 23KDIGG Band NON-REACTIVE; 23KDIGM Band NON-REACTIVE; 28KDIGG Band NON-REACTIVE; 30KDIGG Band NON-REACTIVE; 39KDIGG Band NON-REACTIVE; 39KDIGM Band NON-REACTIVE; 41KDIGG Band NON-REACTIVE; 41KDIGM Band NON-REACTIVE; 45KDIGG Band NON-REACTIVE; 58KDIGG Band NON-REACTIVE; 66KDIGG Band NON-REACTIVE; 93KDIGG Band NON-REACTIVE; Lyme Antibodies, WB IgG NEGATIVE (NEGATIVE); Lyme Antibodies, WB IgM NEGATIVE (NEGATIVE)
--- NOTE | 2021-01-17 16:34 | Discharge Summary ---
Date of Service January 17, 2021 Admission HPI Per Admitting Provider CHIEF COMPLAINT: Nausea, fever. HISTORY OF PRESENT ILLNESS: This is a 40-year-old female with past medical history significant for dysfunctional uterine bleeding, obesity, presents with nausea. The patient says on , she had a bug bite on the left thigh region. She felt a stinging feeling, but she did not see the bug. Then she developed erythematous rash in that area and she was prescribed Bactrim, which was taken and since then she developed nausea, vomiting, shaking chills. That is the reason she came to the ER today and found to have UTI and possible pyelonephritis. Currently, resting comfortably, hemodynamically stable. Denies any headache, no dizziness, no blurred visions, no earache, no runny nose, no sore throat, no cough, no dysphagia, appetite is down the last couple of days. No chest pain, no shortness of breath. She has nausea and vomited a few times. No abdominal pain, no diarrhea or constipation. No blood in the urine or blood in the stools. No rash, no swelling in the legs. Admission Exam (Per Admitting) Constitutional GENERAL: The patient is of moderate build, not in acute distress. VITAL SIGNS: Temperature T-max 37.7, pulse 100, respiratory rate 18, blood pressure 107/53, oxygen 96% on room air. HEENT: Pupils equal, round and reactive to light. Oral mucosa moist. NECK: No JVD, no neck masses. CARDIOVASCULAR: S1 and S2 heard. Regular rate and rhythm. No murmur, no gallop. RESPIRATORY SYSTEM: Normal AP diameter. No accessory muscle use. No wheezing, no crackles. ABDOMEN: Soft, bowel sounds are present, nontender, no distention. CENTRAL NERVOUS SYSTEM: Cranial nerves II through XII are grossly intact, nonfocal. EXTREMITIES: Erythematous rash seen in her left thigh in the medial aspect. Discharge Data Consultations 01/14/21 05:07 ED Decision to Admit Stat Hospital Course (1) Fever: POSSIBLE SEPSIS FROM LEFT THIGH CELLULITIS- INSECT BITE? R/O LYME DISEASE, ANAPLASMOSIS lactate normal given IV fluids bolus, and NSS at 125cc/hr fever and leukocytosis resolved clinically feels better CELLULITIS, LEFT THIGH blood cultures negative x 48 hrs nasal MRSA: negative given Ceftri --> change to Cephalexin x 7 more days R/O LYME DISEASE, ANAPLASMOSIS Lyme screen pending Anaplasmosis pending Babesiosis pending given Doxy IV--> continue x 10 more days URINARY TRACT INFECTION ruled out urine culture negative Pyelo unlikely given absence of CVA tenderness, no signs of pyelo on CT COVID infection unlikely Covid test x 1 negative fever, symptoms improved with antibiotics ACUTE RENAL FAILURE likely from Prerenal from Vomiting, poor intake, Bactrim crea back to baseline BP still marginal-- given IV fluids advised to drink Gatorade, liberalize salt intake Deep venous thrombosis prophylaxis: Lovenox given Disposition dc home ff up with PCP in 1 week plan of care discussed with patient in detail and at length all questions answered she is understanding, agreeable, comfortable with the plan of care
[2021-01-18 00:02] LABS: Babesia microti DNA Not Detected (Not Detected)
== END 2021-01-16 17:24 | disposition home or self-care (01) ==
LOC: ED 02:00 → SUATTDRO 06:05 → INTOOBSV 06:05 → 3E 06:05 → 3N 17:26